=== PATIENT | male | born 1955 | race Caucasian/White ===

== ENCOUNTER 2016-07-25 11:59 | Emergency (ER) | payer BC ==
[~2016-07-25] VITALS: Ht 175.3 cm; Wt 92.5 kg
[2016-07-25] MEDS ORDERED: ASPIR 8181 MG PO (12:09)
[2016-07-25] MEDS ORDERED: ATORVASTATIN CA40 MG PO (12:09)
[2016-07-25] MEDS ORDERED: ABILIFY 2 MG2 M1 PO (12:10)
[2016-07-25] MEDS ORDERED: CIALIS10 MG PO (12:10)
[2016-07-25] MEDS ORDERED: FLOMAX0.4 MG PO (12:10)
[2016-07-25] MEDS ORDERED: CYMBALTA60 MG PO (12:10)
[2016-07-25] MEDS ORDERED: CLONAZEPAM 1 MG1 M1 PO (12:11)
[2016-07-25] MEDS ORDERED: FAMCICLOVIR250 MG PO (12:11)
[2016-07-25] MEDS ORDERED: UNICOMPLEX M TA1 TA1 PO (12:12)
[2016-07-25 14:04] VITALS: BP 141/88
== END 2016-07-25 14:12 | disposition home or self-care (01) ==
LOC: ER 11:59
DX: S00.83XA Contusion of other part of head, initial encounter (principal); F41.9 Anxiety disorder, unspecified; E78.5 Hyperlipidemia, unspecified; F32.9 Major depressive disorder, single episode, unspecified; Z88.8 Allergy status to other drugs, medicaments and biological substances; W10.9XXA Fall (on) (from) unspecified stairs and steps, initial encounter; Y93.89 Activity, other specified; Y92.89 Other specified places as the place of occurrence of the external cause; Y99.9 Unspecified external cause status